=== PATIENT | male | born 1935 | race Caucasian/White ===

== ENCOUNTER 2017-10-16 22:28 | Emergency (ER) | payer OTHER, MEDICAID ==
[~2017-10-16] VITALS: Ht 185.4 cm; Wt 76.2 kg
--- NOTE | 2017-10-16 22:35 | NUR ---
PT BBRA FROM HOME C/O OF GENERALIZED WEAKNESS X2 DAYS. PT'S FAMILY MEMBERS STATES THE PT TOOK 4 PILLS OF TEMAZEPAM ON WEDNESDAY NIGHT D/T NOT BEING ABLE TO SLEEP. PT'S FAMILY MEMBER ALSO STATES SHE GAVE THE PT NORCO FOR HIS CHRONIC PAIN AT 1800. PT IS AAOX4. -N/V/D. PER EMS, BLOOD SUGAR IN FIELD WAS 428. 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 PT'S RESP EVEN AND UNLABORED. SKIN IS HOT AND DRY TO TOUCH. NO S/S OF ACUTE DISTRESS NOTED. PT SAFETY AND COMFORT MEASURES IN PLACE. PT PLACED IN GOWN AND ON HEALTH AND WELLNESS COACH AND POX. MD BEDSIDE FOR EVAL. DURING NEURO ASSESSMENT, PT WAS NOTED TO NOT BE ABLE TO KEEP LOWER EXTREMITIES ELEVATED. PT STATES "ITS BECAUSE OF MY GENERALIZED WEKANESS THAT I CANNOT KEEP MY FEET UP". PT NOTED TO HAVE STRONG AND EQUAL BILATERAL PUTTIER AND ABLE TO KEEP ARMS ELEVATED. PT STATES + SENSATIONS BILATERALY. WILL CONTINUE TO MONITOR PT.
--- NOTE | 2017-10-16 22:41 | NUR ---
PT STATES HE SELF CATHS 5 TIMES A DAY AND REQUIRES CATHETERIZATION TO EXPEL URINE.
[2017-10-16] MEDS ORDERED: ONDANSETRON HCL/PF 4 MG/2 ML VIAL ONE (22:49)
[2017-10-16] MEDS ORDERED: MORPHINE SULFATE INJ 4 MG/ML DISP.SYRIN ONE (22:49)
[2017-10-16] MEDS ORDERED: ACETAMINOPHEN 650 MG/SUPP.RECT RC ONE ×2 (22:49→23:00)
--- NOTE | 2017-10-16 22:54 | NUR ---
MEDICATED PT ORDERED
[2017-10-16 22:56] LABS: BASOPHILS % (AUTO) 0.1 % (0.0-2.0); HEMATOCRIT 40 % (39-51); HEMOGLOBIN 13.2 g/dL (13.5-17.5); LYMPHOCYTES # (AUTO) 0.7 /CMM (0.8-4.8); LYMPHOCYTES % (AUTO) 3.1 % (20.0-44.0); MEAN CORPUSCULAR HGB CONC 34 g/dl (31.0-36.0); MEAN CORPUSCULAR VOLUME 97 fL (80-96); MONOCYTES # (AUTO) 1.2 /CMM (0.1-1.30); MONOCYTES % (AUTO) 5.2 % (2.0-12.0); NEUTROPHILS # (AUTO) 21.6 /CMM (1.8-8.9); NEUTROPHILS % (AUTO) 91.6 % (43.0-81.0); PLATELET COUNT (AUTO) 171 /CMM (150-450); RDW COEFFICIENT OF VARIATION 12.8 (11.5-15.0); RED BLOOD CELL COUNT(AUTO) 4.05 MIL/uL (4.5-6.0); WHITE BLOOD COUNT (AUTO) 23.5 K/uL (4.3-11.0)
[2017-10-16] MEDS ORDERED: IV NS 0.9% 500 ML BAG IV ONE (23:00)
[2017-10-16] MEDS ORDERED: MORPHINE SULFATE INJ 2 MG/ML DISP.SYRIN IV ONE (23:00)
[2017-10-16] MEDS ORDERED: ONDANSETRON HCL/PF 4 MG/2 ML VIAL IVP ONE (23:00)
[2017-10-16] MEDS ORDERED: IV NS 0.9% 1,000 ML BAG IV ONE ×2 (23:00)
[2017-10-16 23:09] LABS: INR 1.21 (0.87-1.13)
[2017-10-16 23:10] LABS: TROPONIN I < 0.017 ng/mL (0.00-0.056)
[2017-10-16 23:11] LABS: CALCIUM, SERUM 8.6 mg/dL (8.5-10.1); CARBON DIOXIDE 23 mmol/L (21-32); CHLORIDE 96 mmol/L (98-107); CREATININE 2.1 mg/dL (0.6-1.3); GLUCOSE 341 mg/dL (74-106); POTASSIUM 3.6 mmol/L (3.5-5.1); SODIUM SERUM 127 mmol/L (136-145); UREA NITROGEN, BLOOD 35 mg/dL (7-18)
--- NOTE | 2017-10-16 23:11 | NUR ---
RADIOLOGY BEDSIDE FOR CHEST X-RAY
[2017-10-16 23:19] LABS: APPEARANCE,URINE CLOUDY (CLEAR); BILIRUBIN,URINE NEGATIVE (NEGATIVE); BLOOD, URINE 3+ Ery/uL (NEGATIVE); COLOR,URINE YELLOW (YELLOW); KETONES,URINE NEGATIVE (NEGATIVE); LEUKOCYTE ESTERASE ,URINE 2+ (NEGATIVE); NITRITE, URINE POSITIVE (NEGATIVE); PROTEIN,URINE 2+ mg/dl (NEGATIVE); UGLUCOSE 3+ mg/dL (NEGATIVE)
[2017-10-16 23:24] LABS: ALANINE AMINOTRANSFERASE 45 U/L (12-78); ALBUMIN 2.6 g/dL (3.4-5.0); ALKALINE PHOSPHATASE 114 U/L (46-116); ASPARTATE AMINOTRANSFERASE 51 U/L (15-37); BILIRUBIN,DIRECT 0.5 mg/dL (0.0-0.2); BILIRUBIN,TOTAL 1.3 mg/dL (0.2-1.0); TOTAL PROTEIN, SERUM 7.1 g/dL (6.4-8.2)
[2017-10-16] MEDS ORDERED: INSULIN REGULAR, HUMAN 100 UNIT/ML 3 ML VIAL IV ONE (23:30)
--- NOTE | 2017-10-16 23:32 | NUR ---
PT TO CT
[2017-10-16 23:35] LABS: BAND % (MANUAL) 9 % (0.0-5.0); LYMPHOCYTES % (MANUAL) 5 % (16-48); MONOCYTES % (MANUAL) 3 % (0-11.0); NEUTROPHILS % (MANUAL) 83 (42-76)
[2017-10-16 23:36] LABS: BACTERIA,URINE Few /HPF (None Seen); RBC,URINE 51-80 /HPF (0-2); SQUAMOUS EPITHELIAL CELL,UR Few /HPF (None Seen)
--- NOTE | 2017-10-16 23:47 | NUR ---
PT BACK FROM CT
[2017-10-16] MEDS ORDERED: CIPROFLOXACIN IV RTU 200 ML IV ONE (23:49)
[2017-10-16] MEDS ORDERED: INSULIN REGULAR, HUMAN 100 UNIT/ML 10 ML VIAL ONE (23:49)
--- NOTE | 2017-10-16 23:51 | NUR ---
VERIFIED 5 UNITS OF INSULIN
[2017-10-17] MEDS ORDERED: CIPROFLOXACIN IV RTU 400 MG in PREMIX 1 EA IV SCH ×2
--- NOTE | 2017-10-17 00:12 | NUR ---
Patient is resting comfortably in bed with eyes closed. Easily aroused. VSS. Pt's family member bedside.
--- NOTE | 2017-10-17 00:50 | NUR ---
CALLED [facility] TO UPDATE PT CONDITION AND TO INFORM [facility] MD MEEK IS READY TO HAVE A MD TO MD CALL
[2017-10-17] MEDS ORDERED: IV NS 0.9% 500 ML BAG IV ONE (01:30)
--- NOTE | 2017-10-17 01:35 | NUR ---
[facility] JESSICA GARCIA SARAN [phone] ETA ALS [id number]
--- NOTE | 2017-10-17 01:38 | NUR ---
Patient is resting comfortably in bed with eyes closed. Easily aroused. VSS
--- NOTE | 2017-10-17 01:51 | NUR ---
REPORT GIVEN TO CHARLIE ANDERSON AT [facility].
--- NOTE | 2017-10-17 03:12 | NUR ---
TRANSPORT TEAM BEDSIDE TO TRANSFER PT TO [facility]. PT BEING TRANSFERED [facility]NTO [facility].
--- NOTE | 2017-10-17 03:14 | NUR ---
Patient Tranfers to outside Facility Physician:SARAN Location:[facility].
[2017-10-17 03:15] VITALS: BP 102/49
--- NOTE | 2017-10-17 03:48 | NUR ---
Kriss salas in [facility] - 10/17/17 at 0352 by INNA MARIO INFO; [id number] [place], [address] [facility],[id number] MD SAMIA GUERRA TO RN [phone]
--- NOTE | 2017-10-17 17:53 | NUR ---
RECEIVED REPORT FROM [facility] (-) ON BLOOD CULTURE
== END 2017-10-17 03:37 | disposition short-term general hospital (02) ==
LOC: ER 22:29
DX: N39.0 Urinary tract infection, site not specified (principal); R65.20 Severe sepsis without septic shock; E87.1 Hypo-osmolality and hyponatremia; R73.9 Hyperglycemia, unspecified; Z85.51 Personal history of malignant neoplasm of bladder; Z88.0 Allergy status to penicillin
CPT/HCPCS: 36415; 70450-TC; 71045-TC; 80048-TC; 80076-TC; 81000-TC; 82962-TC; 83605-TC; 84484-TC; 85025-TC; 85730-TC; 87040-TC; 87086-TC; 87186-TC; A4216; A4606; J0744; J1815; J2270; J2405; J7030; J7040; Z7610